=== PATIENT | female | born 1945 | race Caucasian/White ===

== ENCOUNTER 2024-12-13 19:33 | Emergency (ER) | payer MEDICARE, MEDICAID ==
[~2024-12-13] VITALS: Ht 157.5 cm; Wt 85.0 kg
[2024-12-13 20:11] VITALS: O2SAT 92
[2024-12-13] MEDS ORDERED: HYDROCODONE/ACETAMINOPHEN 7.5/325MG TABLET PO ONE (21:15)
[2024-12-13] MEDS ORDERED: IBUP-2030 MT (23:22)
[2024-12-13] MEDS: HYDROCODONE/ACETAMINOPHEN 7.5/325MG TABLET PO NR (23:24)
[2024-12-13] MEDS: LOSARTAN 50 MG TABLET PO ONE (23:24)
[2024-12-14 00:30] VITALS: BP 169/70; PULSE 80; RESP 16; TEMP 36.7; O2SAT 97
== END 2024-12-14 00:52 | disposition home or self-care (01) ==
LOC: ER 19:33
DX: S42.291A Other displaced fracture of upper end of right humerus, initial encounter for closed fracture (principal); E11.9 Type 2 diabetes mellitus without complications; I11.0 Hypertensive heart disease with heart failure; I50.9 Heart failure, unspecified; Z79.899 Other long term (current) drug therapy; Z55.6 Problems related to health literacy; W01.0XXA Fall on same level from slipping, tripping and stumbling without subsequent striking against object, initial encounter; Y93.89 Activity, other specified; Y92.009 Unspecified place in unspecified non-institutional (private) residence as the place of occurrence of the external cause; Y99.8 Other external cause status
CPT/HCPCS: 29240; 73030; 73060; 99284